=== PATIENT | female | born 1975 | race Caucasian/White ===

== ENCOUNTER → 2020-06-19 15:44 | Outpatient (CLI) | payer OTHER, SELFPAY ==
--- NOTE | ~2020-06-19 | US_ITS ---
EXAMINATION: US transvaginal EXAM DATE: 06/19/2020 16:11 INDICATION: Left-sided mass on pelvic exam. TECHNIQUE: Pelvic transvaginal sonogram was performed. There are multiple grayscale and Doppler imag es available for interpretation. Comparison is made to prior examination from 08/16/2019. FINDINGS: Uterus measures 9.4 x 4.6 x 5.2 cm, with IUD centrally located inside the endometrial cavi ty. Possible small fibroid anteriorly lower uterine segment measuring 7 mm. Endometrial stripe measu res 5 mm, within normal limits. There are nabothian cysts. There is no free pelvic fluid. Right adnexa: The ovary measures 2.3 x 1.5 x 2.5 cm and is morphologically normal. Ovarian vascular f low confirmed. Left adnexa: The ovary measures 3.0 x 1.7 x 2.0 cm and is morphologically normal. Ovarian vascular fl ow confirmed. IMPRESSION: 1. Possible small fibroid. IUD in position. 2. Sonographically normal ovaries. Reviewed, dictated and finalized at location A.
== END ==
PROVIDERS: Visit Provider Nurse Practitioner
DX: R10.9 Unspecified abdominal pain (principal); Z97.5 Presence of (intrauterine) contraceptive device
CPT/HCPCS: 76830

== ENCOUNTER 2020-09-09 10:42 | Outpatient (CLI) | payer OTHER, SELFPAY ==
--- NOTE | ~2020-09-09 | MM_ITS ---
EXAMINATION: MM screening lavinia BI w trish HISTORY: Screening TECHNIQUE: Craniocaudal and mediolateral oblique 3-D tomosynthesis images were obtained and synthetic 2-D images were generated. CAD analysis was submitted and interpreted. COMPARISON: Comparison to multiple prior studies sequentially, with oldest reviewed study dated 04/2015. BREAST PARENCHYMAL COMPOSITION: There are scattered areas of fibroglandular density. FINDINGS: There is no evidence of suspicious mass, calcification, or architectural distortion to sugg est malignancy in either breast. There has been no suspicious interval change. IMPRESSION: 1. No mammographic evidence of malignancy. 2. Recommend routine screening mammography in one year. BI-RADS Category 1: Negative Reviewed, dictated and finalized at location A. RVISOR FINAL
== END 2020-09-09 10:43 | disposition home or self-care (01) ==
LOC: ANHIMG 10:48
PROVIDERS: Visit Provider Nurse Practitioner
DX: Z12.31 Encounter for screening mammogram for malignant neoplasm of breast (principal)
CPT/HCPCS: 77063; 77067

== ENCOUNTER 2022-01-29 15:41 | Outpatient (CLI) | payer OTHER, SELFPAY ==
--- NOTE | ~2022-01-29 | MM_ITS ---
EXAMINATION: MM screening lavinia BI w trish HISTORY: Screening mammogram TECHNIQUE: Craniocaudal and mediolateral oblique 3-D tomosynthesis images were obtained and synthetic 2-D images were generated. Bilateral rotated lateral CC views. CAD analysis was submitted and interp reted. COMPARISON: 09/09/2020, 03/2019, 01/07/2018 bilateral screening mammogram examinations BREAST PARENCHYMAL COMPOSITION: There are scattered areas of fibroglandular density. FINDINGS: Focal asymmetry and irregularity is suggested in the deep posterior outer aspect of each br east. Bilateral diagnostic mammography is recommended, with ultrasound if required. IMPRESSION: 1. Bilateral mammographic asymmetry 2. Bilateral diagnostic mammography is recommended, with ultrasound if required BI-RADS Category 0: Incomplete: Needs additional imaging evaluation. Reviewed, dictated and finalized at location A.
== END 2022-01-29 15:42 | disposition home or self-care (01) ==
LOC: ANHIMG 15:44
PROVIDERS: PCP Family Medicine; Visit Provider Obstetrics & Gynecology Gynecology
DX: Z12.31 Encounter for screening mammogram for malignant neoplasm of breast (principal); R92.8 Other abnormal and inconclusive findings on diagnostic imaging of breast
CPT/HCPCS: 77063; 77067

== ENCOUNTER 2022-02-01 11:41 | Outpatient (CLI) | payer OTHER, SELFPAY ==
--- NOTE | ~2022-02-01 | MMUS_ITS ---
EXAMINATION: MM diagnostic lavinia BI w trish, US breast BI limited HISTORY: Bilateral breast asymmetries. TECHNIQUE: Additional 3-D tomosynthesis images of the breasts were performed and synthetic 2-D images were generated. CAD analysis was submitted and interpreted. High resolution bilateral limited breast ultrasound was performed. COMPARISON: Comparison to multiple prior studies sequentially, with oldest reviewed study dated 12/30. BREAST PARENCHYMAL COMPOSITION: Breast composed of scattered areas of fibroglandular density FINDINGS: MAMMOGRAPHIC FINDINGS: There are no suspicious masses, calcifications or architectural distortion in either breast to sugges t malignancy. ULTRASOUND: Complete bilateral US of all 4 quadrants of the breasts and retroareolar region was reviewed. There a re small cysts in the right breast, largest measuring 6 mm at 9:00, 2 cm from the nipple. No suspicio us solid or vascular lesions are identified in either breast to suggest malignancy. IMPRESSION: 1. No evidence for malignancy in either breast. 2. Routine yearly screening mammogram and regular clinical breast examination are recommended. BI-RADS Category 2: Benign finding(s). Reviewed, dictated and finalized at location A. IMPRESSION: 1. No evidence for malignancy in either breast. 2. Routine yearly screening mammogram and regular clinical breast examination a re recommended. BI-RADS Category 2: Benign finding(s).
== END 2022-02-01 11:42 | disposition home or self-care (01) ==
LOC: ANHIMG 11:43
PROVIDERS: PCP Family Medicine; Visit Provider Obstetrics & Gynecology Gynecology
DX: R92.8 Other abnormal and inconclusive findings on diagnostic imaging of breast (principal)
CPT/HCPCS: 76642; 77062; 77066; G0279

== ENCOUNTER → 2022-02-16 11:15 | Outpatient (CLI) | payer OTHER, SELFPAY ==
--- NOTE | ~2022-02-16 | US_ITS ---
EXAMINATION: US transvaginal DATE: 02/16/2022 11:37 INDICATION: Right lower quadrant pain, leiomyoma. Comparison:06/19/2020 TECHNIQUE: Multiple transabdominal and endovaginal sonographic images of the pelvis performed. FINDINGS: The uterus measures 9.6 x 4.8 x 5.8. The endometrial complex measures 0.9. IUD, in good pos ition. 7 mm hypoechoic focus in the anterior bladder uterine segment, unchanged in size given interva l difference in technique. The right ovary measures 3.3 x 2.3 x 2.1 and the left ovary measures 1.6 x 1.5 x 1.3. There are smal l follicles in each ovary. Normal doppler signal in both ovaries. There is no free fluid in the pelvis. There are no abnormal masses seen on either side. IMPRESSION: 1. Stable small possible fibroid in the lower anterior uterine segment, otherwise normal pelvic sonog shilpi findings. Reviewed, dictated and finalized at location K. IMPRESSION: 1. Stable small possible fibroid in the lower anterior uterine segment, otherwi se normal pelvic sonogram findings.
== END ==
PROVIDERS: Visit Provider Nurse Practitioner
DX: D25.9 Leiomyoma of uterus, unspecified (principal)
CPT/HCPCS: 76830

== ENCOUNTER → 2022-05-08 10:50 | Outpatient (CLI) | payer OTHER, SELFPAY ==
--- NOTE | ~2022-05-08 | US_ITS ---
US axilla RT 05/08/2022 11:16 Indication: Right axillary lump Procedure: High-resolution ultrasound of the right axilla Comparison: No prior studies for comparison. Findings: Normal heterogeneous echotexture without focal mass. No abnormal lymphadenopathy or cysts. Impression: 1: Normal right axillary ultrasound without discrete mass. BI-RADS CATEGORY 1 - NEGATIVE Reviewed, dictated and finalized at location A. Impression: 1: Normal right axillary ultrasound without discrete mass. BI-RADS CATEGORY 1 - NEGATIVE
== END ==
PROVIDERS: PCP Family Medicine; Visit Provider Nurse Practitioner
DX: R22.9 Localized swelling, mass and lump, unspecified (principal)
CPT/HCPCS: 76882

== ENCOUNTER 2022-06-17 14:37 | Outpatient (CLI) | payer OTHER, SELFPAY ==
--- NOTE | ~2022-06-17 | XR_ITS ---
XR shoulder RT min 2V DATE: 06/17/2022 14:59 INDICATION: Right shoulder pain, limited range of motion. No injury. TECHNIQUE: 4 views COMPARISON: None FINDINGS: No fracture or dislocation, periosteal reaction or bone destruction or abnormal soft tissue calcification. IMPRESSION: No significant abnormality Reviewed, dictated and finalized at location B. IMPRESSION: No significant abnormality
== END 2022-06-17 14:38 | disposition home or self-care (01) ==
PROVIDERS: PCP Family Medicine; Visit Provider Physician Assistant
DX: M25.511 Pain in right shoulder (principal)
CPT/HCPCS: 73030

== ENCOUNTER → 2022-11-16 09:43 | Outpatient (CLI) | payer OTHER, SELFPAY ==
--- NOTE | ~2022-11-16 | MR_ITS ---
EXAMINATION: MR shoulder RT wo con DATE: 11/16/2022 10:42 INDICATION: right sided neck/generalized shoulder/arm pain x1yr, . TECHNIQUE: Magnetic resonance imaging (MRI) of the right shoulder was performed without intravenous c ontrast. Sequences included axial PD-weighted FS FSE, coronal oblique PD-weighted FS FSE and T2-weigh phani FS FSE, and sagittal oblique T2-weighted FS FSE and T1-weighted FSE. COMPARISON: X-ray right shoulder 06/17/2022. FINDINGS: Coracoacromial arch: Mild AC joint hypertrophy. Moderate acromial tip enthesopathy. Borderline subacromial narrowing. No s ubcoracoid narrowing. No significant anterolateral downsloping of the type I acromion. Rotator cuff: Bursal sided fraying of the superior cuff. 2 x 4 mm rim rent tear in the distal fibers of the infrasp inatus. Focal thickening and abnormal signal in the critical zone of the supraspinatus tendon. The in fraspinatus, teres minor, and subscapularis are intact. Biceps tendon and glenoid labrum: Abnormal hyperintense signal in the posterior and superior quadrant of the superior labrum. The long head of biceps tendon is intact. Fluid: Small volume subacromial subdeltoid fluid. Bones/cartilage: No suspicious focal or diffuse marrow signal. Degenerative subcortical cystic changes in the superola teral humeral head. IMPRESSION: 1. 4 mm rim rent tear infraspinous. 2. Significant supraspinatus tendinopathy. 3. Osseous outlet compromise with subacromial subdeltoid bursitis and bursal sided fraying. 4. Healing posterior superior glenoid labral tear versus degenerative change. Reviewed, dictated and finalized at location K. LER DRIVER IMPRESSION: 1. 4 mm rim rent tear infraspinous. 2. Significant supraspinatus tendinopathy. 3. Osseous outlet compromise with subacromial subdeltoid bursitis and bursal si ded fraying. 4. Healing posterior superior glenoid labral tear versus degenerative change.
== END ==
PROVIDERS: PCP Family Medicine; Visit Provider Orthopaedic Surgery
DX: M54.2 Cervicalgia (principal); S43.491A Other sprain of right shoulder joint, initial encounter; X58.XXXA Exposure to other specified factors, initial encounter
CPT/HCPCS: 73221

== ENCOUNTER 2023-04-14 00:08 | Day surgery (SDC) | payer OTHER, SELFPAY ==
[2023-04-03 11:48] VITALS: BMI 24.9
--- NOTE | 2023-04-03 11:52 | PC.NURSE ---
Report to the Outpatient Waiting Room, entrance under the green pavilion located off [facility], at time 0830 on date 04/14/23. Planned Procedure Time: 1030. Time changes happen often and if your time is changed the preop area will call you the afternoon before. - You and your visitor will be asked to self-screen and do not enter if you have any COVID symptoms. - A mask is optional within the hospital at this time. Patients may have clear liquids (water, carbonated beverages, clear teas, apple juice) until 3 hours prior to surgery with a maximum of 20 ounces. - No food from midnight until time of surgery Take the following medications with a SIP of water the morning of surgery: VALACYCLOVIR, ALPRAZOLAM DO NOT STOP ANY OF YOUR OTHER PRESCRIPTION MEDICATIONS PRIOR TO SURGERY?EXCEPT THE FOLLOWING Medications to discontinue per physician: N/A Date to take last dose: N/A Please no make-up, nail setswana, hairspray, perfume, deodorant, or body powder the day of surgery. No jewelry (including any body piercings) or valuables the day of surgery, leave them at home. Please take a shower or bath the night before, or the morning of, surgery with an antibacterial soap. Wear comfortable, loose fitting clothing. - Jewelry must be removed prior to entering the operating room. Rings and piercings that are not removed may be cut off. - The hospital will not accept responsibility for valuables. - Please leave all valuables, including medications, at home the day of surgery. If you are going home after surgery, a licensed hole digger truck driver must drive you home. - NO public transportation without another adult if you receive anesthesia. - We recommend that an adult stay with you for 24 hours following discharge. - We also recommend that you do not drive, make important decision, drink alcoholic beverages, or take any drugs that were not prescribed by your health care provider for at least 24 hours after your discharge time. Follow any additional instructions given to you from your surgeon. If you or anyone in your household have experienced Covid symptoms in the past week, please notify your surgeon or the nurse liaison at the phone number below for possible testing. Telephone instructions given to PT - FIORELLA MCPHERSON and asked if any additional questions and then verbalized understanding. Patient advised to call surgeon office or pre surgery nurse liaison [phone] if any additional questions.
[2023-04-14] VITALS (8 sets, daily range): BP systolic 105–131; BP diastolic 52–76; PULSE 57–79; RESP 12–16; TEMP 36.2–36.6; O2SAT 97–100
[2023-04-14] MEDS: LACTATED RINGERS 1,000 ML 30 ML IV CONT ×2 (09:06→12:14)
[2023-04-14] MEDS: KETOROLAC 15 MG/ML VIAL (*BKC) IV PUSH (09:07)
[2023-04-14] MEDS: ACETAMINOPHEN 500 MG TABLET 1000 MG PO (09:07)
--- NOTE | 2023-04-14 09:36 | WPDANESEPPF ---
Anes - Initial Pre Proc Eval Procedure: Operation Date: 04/14/23 10:30 Proposed Procedures p Right Rotator Cuff Repair with Distal Clavicle Excision, Proceed as Indicated - Karri Almonte MD Date/Time: 04/14/23 09:36 Surgeon: Karri Almonte MD Pre Op Diagnosis: Right Rotator Cuff Tear, AC arthritis Patient Data Age: 47 Gender: F Height: 1.63 m Weight: 68.5 kg Last Vital Signs Temp 36.6 C 04/14/23 08:38 Pulse 70 04/14/23 08:38 Resp 16 04/14/23 08:38 BP 109/52 L 04/14/23 08:38 Pulse Ox 100 04/14/23 08:38 O2 Del Method Room Air 04/14/23 08:38 Allergies Allergy/AdvReac Type Severity Reaction Status Date / Time No Known Allergies Allergy Mild Verified 04/14/23 09:16 Home Medications Medication Instructions Recorded Confirmed Type celecoxib 200 mg capsule (Celebrex) 200 mg PO DAILY #30 caps 03/12/23 04/09/23 Rx alprazolam 0.5 mg tablet 0.5 mg PO BID PRN anxiety #60 tabs 04/02/23 04/09/23 Rx valacyclovir 500 mg tablet 500 mg PO DAILY 04/03/23 04/09/23 History semaglutide (weight loss) 0.25 0.25 mg subcut WEEKLY 04/08/23 04/09/23 History mg/0.5 mL subcutaneous pen injector Patient hx anesthesia problems: none Family hx anesthesia problems: none Results Review: All pre-operative results and documents have been reviewed as part of the pre-operative evaluation. [facility] Past Medical History Medical History Anxiety Arthritis of right acromioclavicular joint Right rotator cuff tear Shoulder pain, right Surgical History Surgical History History of Family History Family History Father Alcoholism Cerebrovascular accident Cancer Daughter Asthma Grandparent Alcoholism Cerebrovascular accident Social History Social History Smoking status: Never smoker Second hand tobacco smoke exposure: No Alcohol intake: current Drinks per week: 4 Substance use: never Substance use type: does not use Lack of Transportation: No Lack of Food: Never True Current Housing: I Have Housing Concerned About Future Housing: No Difficulty Paying Gas/Electric Bills: No Difficulty Paying for Meds: No Currently Unemployed: No Education: Bachelor's Degree Difficulty w/ Childcare or Family Care: No Living arrangements: with family Occupation/Education: occupation 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 Informed Consent: The patient's anesthetic plan and its attendant risks and benefits were discussed with the patient/family/POA. Questions were solicited and answers provided to the satisfaction of the patient/family/POA.
--- NOTE | 2023-04-14 10:22 | WPDHPUPDATE1 ---
History and Physical Update Update Date/Time: 04/14/23 10:22 History and Physical has been reviewed, including an updated exam of the patient. There are NO changes in the patient's condition. Risks, benefits, and alternatives have been discussed and questions answered. Patient agrees to proceed with procedure.
--- NOTE | 2023-04-14 10:46 | WPDANESPNB ---
Anes - Peripheral Nerve Block Date/Time: 04/14/23 10:46 I have discussed with the patient/family/POA the placement of a peripheral nerve block for post-operative pain management, including associated risks, benefits, complications, and side effects. Alternative methods of post-operative analgesia were detailed. Questions were solicited and answers provided to the satisfaction of the patient/family/POA. Time-Out: A pre-procedural Time-Out was completed immediately before starting the procedure and confirmed: Patient Identification, Site, Procedure, Patient Position and the Availability of Requisite Equipment. Clinical Indications: Acute post-operative pain management requested by the operative surgeon. Nerve Block Insertion Note Anes-nerve block: interscalene right Patient position: other (sitting) Skin prep: chlorhexidine Needle: 22 gauge, stimulating, insulated echogenic needle. Needle length: 50 mm Technique: nerve stimulation lost at (mA) and ultrasound Technique comment: mid2mg fent 100mcg Injectate: bupivacaine 0.5% with epi 5 mcg/ml (30ml no epi) and dexamethasone (mg) (4) Observations: tolerated well Complications: none Procedure start time:: 1033 Procedure end time:: 1039
[2023-04-14] MEDS: ceFAZolin 2 GM/D5W 50 ML 2 GM/50 ML BAG IVPB (10:50)
[2023-04-14] MEDS: BUPIVACAINE/EPINEPHRINE 0.5% 50 ML VIAL 10 ML INFILTRATE (11:31)
--- NOTE | 2023-04-14 12:20 | W.PM.PROC2 ---
Procedure Note - Detailed Date of Procedure 04/14/23 Pre-op Diagnosis Right Rotator Cuff Tear, AC arthritis Post-op Diagnosis Same Procedure Performed right shoulder rotator cuff repair with distal clavicle excision. Surgeon Karri Almonte MD Town Administrator Sim Eason Anesthesia General and Regional Description of Procedure Patient was identified and proper site identified. In the preop holding area the anesthesia team performed a right-sided upper extremity block. She was then taken to the operating room and transferred to the or table taking care to pad the torso and extremities. After general anesthetic induction and intubation, she was put in a semi beach chair position in the usual manner for a right shoulder procedure. Her head was secured taking care to neither rotate nor extend the head and neck. The right upper extremity was prepped and draped free in usual sterile fashion. The subcutaneous tissue in the area of the incision was injected with 10 cc of 0.25% Marcaine and epinephrine solution. An oblique anterior incision was made extending from the AC joint distally in line with the fibers of the deltoid. Subcutaneous tissue was sharply dissected down to the deltoid fascia. The deltoid was dissected off the anterior portion of the acromion in the distal end of the clavicle. A 2 cm split was made at the junction between the anterior and middle thirds of the deltoid. Using the microsagittal saw the last 8 mm of clavicle removed. The saw was also used to perform the acromioplasty and then the undersurface of the acromion was rasped smooth. there was an impressive amount thickened subacromial bursal tissue which was sharply debrided allowing for inspection the cuff. The there was an area of prominence at the junction of the supra and infraspinatus tendons on the greater tuberosity corresponding to what was seen on the MRI. This was a near complete tear. This completed the bit of degenerative tissue that was debrided. Tuberosity was prepared for the repair which was then carried out using 2. Ethibond suture passed through a bony bridge. This gave a menezes repair which was stable as the shoulder was taken through range of motion The wound was irrigated with sterile NaCl solution. The deltoid was repaired back to the acromion with 2. Ethibond suture passed through bone and the remainder of the deltoid repair carried out with 2. Vicryl. Subcutaneous tissue was reapproximated with 2. Strata fix and then tissue adhesive used for the skin. Sterile dressing was applied. There were no known intraoperative complications, and perioperative antibiotics were administered. Estimated Blood Loss -20.0 Drains No Packing No Pathology None sent Complications No immediate complications Condition Stable Disposition PACU [facility] Billing Surgery - Charge Forward: Surgery Billing ([id number], [id number])
== END 2023-04-14 13:59 | disposition home or self-care (01) ==
PROVIDERS: PCP Family Medicine; Visit Provider Orthopaedic Surgery
PROC: (CPT 23420; principal; 2023-04-14 10:30)
DX: M75.101 Unspecified rotator cuff tear or rupture of right shoulder, not specified as traumatic (principal); M19.011 Primary osteoarthritis, right shoulder; G89.18 Other acute postprocedural pain; F41.9 Anxiety disorder, unspecified
CPT/HCPCS: 23412; 23120; 64415; A4565; A9270; J0330; J0690; J1100; J1885; J2250; J2370; J2405; J2704; J3010; J7120

== ENCOUNTER → 2023-08-06 08:09 | Outpatient (CLI) | payer OTHER, SELFPAY ==
--- NOTE | ~2023-08-06 | MR_ITS ---
EXAMINATION: MR cervical spine wo con DATE: 08/06/2023 08:53 INDICATION: Neck pain. TECHNIQUE: Magnetic resonance imaging (MRI) of the cervical spine was performed without intravenous c ontrast. COMPARISON: Cervical spine radiographs 07/09/2023 FINDINGS: There is mild kyphosis of cervical spine. Vertebral body heights are normal. There is mildl y decreased disc height at C5-C6. The spinal cord signal intensity is normal. The following disc leve ls are specifically discussed: C2-C3: The disc does not extend beyond the endplate margin. There is no uncovertebral joint osteoarth ritis. There is mild bilateral facet joint osteoarthritis. There is no neural foraminal stenosis. The re is no central canal stenosis. C3-C4: The disc does not extend beyond the endplate margin. There is no uncovertebral joint osteoarth ritis. There is mild right and moderate left facet joint osteoarthritis. There is no neural foraminal stenosis. There is no central canal stenosis. C4-C5: The disc does not extend beyond the endplate margin. There is mild bilateral uncovertebral clarisse nt osteoarthritis. There is mild right and moderate left facet joint osteoarthritis. There is no neur al foraminal stenosis. There is no central canal stenosis. C5-C6: The disc is bulging. There is severe bilateral uncovertebral joint osteoarthritis. There is no facet joint osteoarthritis. There is mild bilateral neural foraminal stenosis. There is mild central canal stenosis. C6-C7: The disc does not extend beyond the endplate margin. There is no uncovertebral joint osteoarth ritis. There is mild left facet joint osteoarthritis. There is no neural foraminal stenosis. There is no central canal stenosis. C7-T1: The disc does not extend beyond the endplate margin. There is no uncovertebral joint osteoarth ritis. There is moderate right and severe left facet joint osteoarthritis. There is mild left neural foraminal stenosis. There is no central canal stenosis. IMPRESSION: 1. Mild cervical spondylosis. Reviewed, dictated and finalized at location E.
== END ==
PROVIDERS: PCP Family Medicine; Visit Provider Orthopaedic Surgery
DX: M47.892 Other spondylosis, cervical region (principal)
CPT/HCPCS: 72141

== ENCOUNTER 2023-09-01 08:07 | Outpatient (CLI) | payer OTHER, SELFPAY ==
--- NOTE | ~2023-09-01 | MM_ITS ---
EXAMINATION: MM screening lavinia BI w trish HISTORY: Screening mammogram TECHNIQUE: Craniocaudal and mediolateral oblique 3-D tomosynthesis images were obtained and synthetic 2-D images were generated. CAD analysis was submitted and interpreted. COMPARISON: 02/01/2022 diagnostic bilateral mammogram and Limited bilateral breast ultrasound examinat ion 01/09/2022, 09/09/2020 bilateral screening mammogram examinations BREAST PARENCHYMAL COMPOSITION: There are scattered areas of fibroglandular density. FINDINGS: There is no evidence of suspicious mass, calcification, or architectural distortion to sugg est malignancy in either breast. There has been no suspicious interval change. IMPRESSION: 1. No mammographic evidence of malignancy. 2. Recommend routine screening mammography in one year. BI-RADS Category 1: Negative Reviewed, dictated and finalized at location A.
== END 2023-09-01 08:08 | disposition home or self-care (01) ==
LOC: ANHIMG 08:10
PROVIDERS: PCP Family Medicine; Visit Provider Obstetrics & Gynecology Gynecology
DX: Z12.31 Encounter for screening mammogram for malignant neoplasm of breast (principal)
CPT/HCPCS: 77063; 77067

== ENCOUNTER → 2023-09-09 15:17 | Outpatient (CLI) | payer OTHER, SELFPAY ==
--- NOTE | ~2023-09-09 | MR_ITS ---
EXAMINATION: MR humerus RT wo con DATE: 09/09/2023 16:10 INDICATION: Injury to the right shoulder and upper arm TECHNIQUE: Magnetic resonance imaging (MRI) of the right humerus was performed without intravenous co ntrast. Sequences included axial, sagittal and coronal T1-weighted FSE and fluid sensitive FSE STIR. COMPARISON: Radiographs dated 05/28/2023 FINDINGS: Bone alignment is normal. There is normal marrow signal throughout with no fracture or pathologic mar row replacing process. Musculature is unremarkable. No right elbow joint effusion. There . The suture anchors along the greater tuberosity of the proximal right humerus suggesting prior rotator cuff rep air. There appears to be a full-thickness tear at the distal aspect of the supraspinatus tendon with moderate amount of fluid extending from the glenohumeral joint space through the rotator cuff tear de fect into the subacromial/subdeltoid bursa. The long head of the biceps tendon and the right glenoid labrum appear normal. IMPRESSION: 1. Changes suggestive of prior right rotator cuff repair with full-thickness tear of the distal supra spinatus tendon. This is positioned at the cephalad margin of the relatively large [id number] enco mpassing the entire right upper arm and which limits more detailed evaluation. 2. No remarkable findings in the more distal right upper arm. Reviewed, dictated and finalized at location A. IMPRESSION: 1. Changes suggestive of prior right rotator cuff repair with full-thickness te ar of the distal supraspinatus tendon. This is positioned at the cephalad chaz n of the relatively large [id number] encompassing the entire right upper arm and which limits more detailed evaluation. 2. No remarkable findings in the more distal right upper arm.
== END ==
PROVIDERS: PCP Family Medicine; Visit Provider Orthopaedic Surgery
DX: S49.91XA Unspecified injury of right shoulder and upper arm, initial encounter (principal); X58.XXXA Exposure to other specified factors, initial encounter; M75.101 Unspecified rotator cuff tear or rupture of right shoulder, not specified as traumatic
CPT/HCPCS: 73218

== ENCOUNTER → 2023-09-22 13:28 | Outpatient (CLI) | payer OTHER, SELFPAY ==
--- NOTE | ~2023-09-22 | MR_ITS ---
EXAMINATION: MR shoulder RT w con DATE: 09/22/2023 15:21 INDICATION: Unspecified rotator cuff tear or rupture. Right shoulder pain. TECHNIQUE: Magnetic resonance imaging (MRI) of the right shoulder was performed without intravenous c ontrast after intra-articular injection of contrast (MR arthrogram). COMPARISON: Right shoulder MRI 11/16/2022, radiographs 05/28/2023 FINDINGS: Coracoacromial arch: The acromion undersurface is curved in morphology (type II). There are changes of distal clavicle res ection. There is severe subacromial/subdeltoid bursitis that communicates with an acromioclavicular j oint effusion. There is contrast in the bursa. Rotator cuff: There is severe supraspinatus and infraspinatus tendinopathy. There is a full-thickness tear of supra spinatus and infraspinatus tendons measuring 3.5 cm anterior to posterior by 3.5 cm proximal to dista l. Teres minor tendon is normal. There is mild subscapularis tendinopathy. There is no asymmetric fat ty atrophy of the rotator cuff muscle bellies. Biceps tendon and glenoid labrum: Biceps tendon is in bicipital groove. Intra-articular biceps tendon is normal. The glenoid labrum is intact. Fluid: The glenohumeral joint is well distended by contrast. Bones/cartilage: There is cartilage surface irregularity of glenoid and humeral head. IMPRESSION: 1. Severe rotator cuff tendinopathy with full-thickness tear, worsened from 11/16/22. 2. Mild glenohumeral joint chondrosis. Reviewed, dictated and finalized at location A. S SALESMAN IMPRESSION: 1. Severe rotator cuff tendinopathy with full-thickness tear, worsened from 11/16. 2. Mild glenohumeral joint chondrosis.
--- NOTE | ~2023-09-22 | XR_ITS ---
XR fl inj shoulder RT - MR/CT DATE: 09/22/2023 14:52 INDICATION: Right shoulder pain. Right rotator cuff tear. TECHNIQUE: The purpose of the procedure, technique were discussed with the patient. The patient sherman lized understanding and gave consent. The patient recumbent on the fluoroscopy table, the skin over the anterior aspect of the right should er was prepared with sterile Betadine. 1% lidocaine local anesthetic was administered to the skin and underlying subcutaneous tissues. Subsequently a 22-gauge spinal needle was introduced into the gleno humeral joint from an anterior approach. 12 CC of mixed multi-Demarco, Omnipaque and lidocaine was inje cted into the joint with fluoroscopy confirming intra-articular position of the contrast material. A single spot exposure was made for the record. The patient was cooperative and tolerated the procedure well, without any apparent complication. IMPRESSION: Successful fluoroscopically guided intra-articular injection of contrast material for MR scan right shoulder Reviewed, dictated and finalized at Location A. Reviewed, dictated and finalized at location B. 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
== END ==
PROVIDERS: PCP Orthopaedic Surgery; Visit Provider Orthopaedic Surgery
DX: M75.101 Unspecified rotator cuff tear or rupture of right shoulder, not specified as traumatic (principal)
CPT/HCPCS: 23350; 73222; 77002; A9577; Q9967

== ENCOUNTER 2024-02-05 10:40 | Outpatient (CLI) | payer OTHER, SELFPAY ==
--- NOTE | ~2024-02-05 | US_ITS ---
EXAMINATION: US transvaginal DATE: 02/05/2024 11:04 INDICATION: IUD check TECHNIQUE: Multiple endovaginal sonographic images of the pelvis were obtained. COMPARISON: 02/16/2022 FINDINGS: The uterus measures 7.5 x 3.7 x 4.4 cm. The IUD appears to be in expected position. The end ometrial complex measures 3 mm. An 8 mm hypoechoic area in the lower anterior uterine segment is stab le, likely fibroid. The right ovary measures 1.7 x 1.8 x 1.8 cm. The left ovary measures 1.7 x 1.0 x 1.6 cm. There is normal vascular flow in the ovaries. There is no free fluid in the pelvis. IMPRESSION: 1. IUD appears to be in expected position. Reviewed, dictated and finalized at location F.
== END 2024-02-05 10:41 ==
PROVIDERS: PCP Obstetrics & Gynecology Gynecology; Visit Provider Nurse Practitioner
DX: T83.32XA Displacement of intrauterine contraceptive device, initial encounter (principal)
CPT/HCPCS: 76830

== ENCOUNTER 2024-04-27 11:11 | Outpatient (CLI) | payer OTHER, SELFPAY ==
--- NOTE | ~2024-04-27 | US_ITS ---
EXAMINATION: US pelvic complete INDICATION: Pelvic pain Comparison:Pelvic pain TECHNIQUE: Multiple transabdominal and endovaginal sonographic images of the pelvis performed. FINDINGS: The uterus measures 9.4 x 4.8 x 5.9 cm. There is an IUD in the endometrium. The endometrial complex measures 1 cm. The right ovary measures 3.5 x 2.2 x 4.2 cm and the left ovary measures 2.3 x 2.1 x 1.6 cm.. There is a 2 cm right ovarian cyst. There are small follicles in each ovary. Normal doppler signal in both ov mora. There is no free fluid in the pelvis. There are no abnormal masses seen on either side. IMPRESSION: 1. Right ovarian cyst measuring 2 cm. Reviewed, dictated and finalized at location B.
== END 2024-04-27 11:12 ==
LOC: MICIMG 11:14
PROVIDERS: PCP Family Medicine; Visit Provider Nurse Practitioner
DX: R10.2 Pelvic and perineal pain (principal); N83.201 Unspecified ovarian cyst, right side
CPT/HCPCS: 76856

== ENCOUNTER 2025-01-11 15:35 | Outpatient (CLI) | payer OTHER, SELFPAY | END 2025-01-11 15:36 | disposition home or self-care (01) | PROVIDERS: PCP Family Medicine; Visit Provider Obstetrics & Gynecology Gynecology | DX: Z12.31 Encounter for screening mammogram for malignant neoplasm of breast (principal) | CPT/HCPCS: 77063; 77067 ==